=== PATIENT | female | born 1935 | race Hispanic/Latino ===

== ENCOUNTER 2020-11-23 06:47 | Inpatient (IN) | payer MEDICARE ==
[~2020-11-23] VITALS: Ht 160 cm; Wt 67.9 kg
[2020-11-23 08:17] LABS: BASO % 0.2 % (0.0-1.0); EOS # 0.2 10^3/uL (0.0-0.5); EOS % 2.1 % (0.0-3.0); HEMATOCRIT 36.3 % (36.0-47.0); LYMPH # 4.3 10^3/uL (1.5-5.0); MEAN CORPUSCULAR HEMOGLOBIN 24.7 pg (27.0-33.0); MEAN CORPUSCULAR HGB CONC 30.3 g/dl (32.0-36.5); MEAN CORPUSCULAR VOLUME 81.4 fl (80.0-96.0); MONO # 0.6 10^3/uL (0.0-0.8); MONO % 6.1 % (2.0-8.0); NEUTROPHILS # 3.8 10^3/uL (1.5-8.5); PLATELET COUNT, AUTOMATED 145 10^3/uL (150-450); RED BLOOD COUNT 4.46 10^6/uL (4.00-5.40)
[2020-11-23 08:27] LABS: INR 1.16; PROTHROMBIN TIME 15.2 SECONDS (12.7-14.5)
[2020-11-23 08:28] LABS: PARTIAL THROMBOPLASTIN TIME 28.1 SECONDS (25.9-37.0)
[2020-11-23] MEDS ORDERED: ISOVUE-370 76% 100ML VIAL As Ordered ONE (08:47)
[2020-11-23 08:50] LABS: ALBUMIN 3.3 GM/DL (3.2-5.2); ALT/SGPT 39 U/L (12-78); AMYLASE 58 U/L (25-115); BILIRUBIN,DIRECT 0.1 MG/DL (0.0-0.2); BILIRUBIN,TOTAL 0.3 MG/DL (0.2-1.0); CK-MB VALUE MASS 1.1 NG/ML (<3.6); CPK CREATINE PHOSPHOKINASE 94 U/L (26-192); ETHYL ALCOHOL (ETHANOL) < 0.003 % (0.000-0.010); LIPASE 108 U/L (73-393); MB/CK RELATIVE INDEX 1.17 (< OR =4); TOTAL PROTEIN 5.9 GM/DL (6.4-8.2); TROPONIN I < 0.02 NG/ML (< 0.10)
[2020-11-23 09:02] LABS: APPEARANCE, URINE CLEAR (CLEAR); BILIRUBIN, URINE AUTO NEGATIVE (NEGATIVE); BLOOD, URINE BLOOD NEGATIVE (NEGATIVE); COLOR, URINE YELLOW (YELLOW); GLUCOSE, URINE (UA) AUTO NEGATIVE (NEGATIVE); KETONE, URINE AUTO NEGATIVE (NEGATIVE); LEUKOCYTE ESTERASE, URINE AUTO TRACE (NEGATIVE); NITRITE, URINE AUTO NEGATIVE (NEGATIVE); PROTEIN, URINE AUTO NEGATIVE (NEGATIVE); UROBILINOGEN, URINE AUTO 0.2 mg/dL (0.0-2.0)
[2020-11-23 09:04] LABS: BACTERIA, URINE AUTO NEGATIVE (NEGATIVE); MUCUS, URINE SMALL (NEGATIVE); RBC, URINE AUTO 1 /HPF (0-3); SQUAMOUS EPITHELIAL CELL UR AU 0 /HPF (0-6); WBC, URINE AUTO 2 /HPF (0-3)
--- NOTE | 2020-11-23 09:12 | REP ---
INDICATION: Trauma. COMPARISON: None. TECHNIQUE: Four views of the right wrist were obtained. FINDINGS: There is an acute comminuted impacted fracture of the distal radius and the distal ulna. There is also an acute avulsion fracture of the ulnar styloid. There is no significant angulation deformity. There is an apparent old healed fracture. IMPRESSION: 1. Comminuted impacted fracture of the distal radius. 2. Oblique fracture of the distal ulna. 3. Avulsion fracture of the ulnar styloid. 4. Apparent previous healed fracture of the distal radius. Incidental Findings: Right distal radius and ulnar fractures. The critical information above was relayed directly by me by telephone to Josr Castillo on 11/23/2020 at 9:07 am with readback verification. <Electronically signed by Dg Garner > 11/23/20 0933
--- NOTE | 2020-11-23 09:22 | REP ---
INDICATION: Trauma. COMPARISON: None. TECHNIQUE: Contiguous 5 mm thick axial projection images were obtained of the head. 2D coronal reconstructions were performed. FINDINGS: There is moderate diffuse cerebral atrophy with concomitant ventriculomegaly. There is calcific vascular disease of the intracranial portion of both internal carotid arteries and the left vertebral artery. There is a left supraorbital scalp hematoma. There is a 3.0 cm in diameter cystic scalp lesion just to the right of midline just anterior to the coronal suture. IMPRESSION: 1. Moderate cerebral atrophy. 2. No evidence of acute intracranial pathology. 3. Left supraorbital scalp hematoma. 4. Right frontal cystic scalp mass, may be a sebaceous cyst. 5. Calcific vascular disease of the intracranial portion of both internal carotid arteries and the left vertebral artery. <Electronically signed by Dg Garner > 11/23/20 0902
[2020-11-23 09:28] LABS: AMPHETAMINES LEVEL URINE NEGATIVE (NEGATIVE); BARBITURATES URINE NEGATIVE (NEGATIVE); BENZODIAZEPINES URINE NEGATIVE (NEGATIVE); CANNABINOIDS URINE NEGATIVE (NEGATIVE); COCAINE METABOLITE URINE NEGATIVE (NEGATIVE); METHADONE URINE NEGATIVE (NEGATIVE); OPIATES URINE NEGATIVE (NEGATIVE); PHENCYCLIDINE URINE NEGATIVE (NEGATIVE)
--- NOTE | 2020-11-23 09:32 | REP ---
INDICATION: Trauma. COMPARISON: None. TECHNIQUE: Contiguous 2 mm thick axial projection images were obtained from the skull base to the thoracic inlet. 2D sagittal and coronal reconstructions were performed. FINDINGS: There is no evidence of acute fracture or facet subluxation or dislocation. There is no evidence of prevertebral soft tissue swelling. There is no abnormal mass effect on the visualized brainstem or cervical spinal cord. 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 There is loss of the normal cervical lordosis and torticollis to the right. There is degenerative disc disease, C3-4, C4-5, C5-6 and C6-7 with narrowing of the disc spaces and marginal osteophytes. There is a large partially calcified disc protrusion at C6-7. There is no central canal stenosis. There is bilateral facet arthropathy, C2-3 through C6-7. There is 2 mm of degenerative anterolisthesis of C3 on C4, C4 on C5 and C5 on C6. There is a mucous retention cyst or polyp in the left maxillary sinus. There is calcific vascular disease of both carotid bifurcations. The visualized paravertebral soft tissues have an otherwise unremarkable unenhanced appearance. IMPRESSION: 1. No evidence of acute bony injury to the cervical spine. There is no perivertebral soft tissue swelling. 2. There is multilevel degenerative disc disease of the cervical spine with cervical spasm. 3. There is multilevel spondylosis with degenerative grade 1 anterolisthesis, C3 on C4 through C5 on C6. 4. Other findings as noted. <Electronically signed by Dg Garner > 11/23/20 0955
--- NOTE | 2020-11-23 09:38 | REP ---
INDICATION: Trauma -left lateral rib pain. COMPARISON: None. TECHNIQUE: Imaging protocol: Computed tomography of the chest with IV contrast. Contiguous 3 mm thick axial projection images were obtained through the chest. 2D sagittal and coronal reconstructions were performed. Radiation optimization: All CT scans at this facility use at least one of these dose optimization techniques: automated exposure control; mA and/or kV adjustment per patient size (includes targeted exams where dose is matched to clinical indication); or iterative reconstruction. CONTRAST: 100 cc Isovue 370 IV. FINDINGS: Lower neck: The thyroid gland is normal. There is no supraclavicular lymphadenopathy. Mediastinum: No abnormal masses or lymphadenopathy. Heart/thoracic aorta: The heart size is normal. There is no pericardial effusion. There is an endoluminal aortic valve prosthesis. There is calcific vascular disease of the thoracic aorta and coronary arteries. There is no evidence of thoracic aortic aneurysm or thoracic aortic dissection. Upper abdomen: Please see CT abdomen and pelvis report, same day. Thoracic esophagus: Normal. Chest wall and axilla: The breasts and soft tissues of the chest wall appear unremarkable. There is no evidence of acute bony injury to the chest. Lung parenchyma: There is mild basilar predominant subpleural reticulation. There are no pulmonary nodules or masses. There is no evidence of pneumothorax, pulmonary contusion or pleural effusion. IMPRESSION: 1. No evidence of acute injury to the chest. 2. Mild chronic interstitial lung disease. 3. 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 There is an aortic valve prosthesis. <Electronically signed by Dg Garner > 11/23/20 0902
--- NOTE | 2020-11-23 09:44 | REP ---
INDICATION: Trauma. COMPARISON: None. TECHNIQUE: AP and lateral views of the right forearm were performed. FINDINGS: There is a comminuted impacted fracture of the distal radius. There is an oblique fracture of the distal ulna. There is an avulsion fracture of the ulnar styloid. The radial head appears subluxed at the radiocapitellar joint. There is no fracture line evident. There is no elbow joint effusion evident. There is a small olecranon spur. IMPRESSION: Apparent subluxation of the radial head at the radiocapitellar joint. No fracture or joint effusion is evident. <Electronically signed by Dg Garner > 11/23/20 2471
--- NOTE | 2020-11-23 09:57 | REP ---
INDICATION: Trauma. COMPARISON: None. TECHNIQUE: Three views of the left shoulder were obtained. FINDINGS: There is an oblique fracture of the clavicle distal to the coracoclavicular articulation a. there is mild inferior displacement of the shoulder girdle. There is moderate arthritis of the acromioclavicular joint. The glenohumeral joint appears unremarkable. The periarticular soft tissues, including the visualized portion of the left lung, are unremarkable. IMPRESSION: 1. Acute oblique fracture of the distal clavicle. 2. Other findings as noted. <Electronically signed by Dg Garner > 11/23/20 0992
--- NOTE | 2020-11-23 09:59 | REP ---
INDICATION: Trauma. COMPARISON: None. TECHNIQUE: Four views of the left ankle were performed. FINDINGS: There is a linear fracture of the calcaneus which extends from the calcaneal tuberosity to the subtalar joint. The mortise joint is intact. There is soft tissue swelling about the ankle. IMPRESSION: 1. Calcaneal fracture, as described. 2. Other findings as noted. <Electronically signed by Dg Garner > 11/23/20 8205
--- NOTE | 2020-11-23 10:01 | REP ---
INDICATION: Trauma. COMPARISON: None. TECHNIQUE: Four views of the left foot were obtained. FINDINGS: There is a linear fracture of the calcaneus which extends from the calcaneal tuberosity to the subtalar joint. There is soft tissue swelling about the ankle. No other acute injuries are identified. IMPRESSION: Fracture of the left calcaneus with associated soft tissue swelling. <Electronically signed by Dg Garner > 11/23/20 0957
--- NOTE | 2020-11-23 10:02 | REP ---
INDICATION: Trauma. COMPARISON: None. TECHNIQUE: Upright AP portable chest image was obtained. FINDINGS: There is chronic interstitial lung disease. There is cardiomegaly and aortic ectasia consistent with benign essential hypertension. There is an endoluminal aortic valve prosthesis. There is calcific vascular disease of the thoracic aorta. There is no evidence of acute bony injury to the chest. There is no evidence of pneumothorax, pulmonary contusion or pleural effusion. IMPRESSION: 1. No evidence of acute injury to the chest. 2. Other findings as noted. <Electronically signed by Dg Garner > 11/23/20 0514
--- NOTE | 2020-11-23 10:03 | REP ---
INDICATION: Trauma. COMPARISON: None. TECHNIQUE: Four views of the right hand were obtained. FINDINGS: There is a comminuted impacted fracture of the distal radius. There is no bleak fracture of the distal ulna. There is an avulsion fracture of the ulnar styloid. There is multifocal arthropathy of the right wrist and hand. IMPRESSION: 1. Fractures of the right distal radius and ulna as described. 2. Multifocal arthropathy of the right hand and wrist, as described <Electronically signed by Dg Garner > 11/23/20 1000
--- NOTE | 2020-11-23 10:05 | REP ---
INDICATION: Trauma. COMPARISON: None. TECHNIQUE: Two AP and 2 lateral views of the left tibia and fibula were obtained. FINDINGS: There is a fracture of the calcaneus. There is associated soft tissue swelling. The tibia and fibula are normal. The knee and ankle joints are normal. IMPRESSION: 1. Fracture of the calcaneus previously described. 2. The tibia and fibula are normal. 3. Other findings as noted. <Electronically signed by Dg Garner > 11/23/20 100
--- NOTE | 2020-11-23 10:08 | REPVR ---
PROCEDURE INFORMATION: Exam: CT Maxillofacial Without Contrast Exam date and time: 11/23/2020 8:48 AM Age: 85 years old Clinical indication: Injury or trauma; Fall. TECHNIQUE: Imaging protocol: Computed tomography images of the face without contrast. Radiation optimization: All CT scans at this facility use at least one of these dose optimization techniques: automated exposure control; mA and/or kV adjustment per patient size (includes targeted exams where dose is matched to clinical indication); or iterative reconstruction. COMPARISON: No relevant prior studies available. FINDINGS: Orbital cavity: Orbits are normal. Globes are unremarkable. Bones/joints: See "Soft tissues" finding. Paranasal sinuses: There is a retention cyst/polyp in the left maxillary sinus. Soft tissues: There is left periorbital soft tissue swelling. There is no underlying fracture. IMPRESSION: There is left periorbital soft tissue swelling. There is no underlying fracture. Electronically signed by: Jemal Robison On 11/23/2020 10:08:11 AM
[2020-11-23 10:16] LABS: RSV AMPLIFICATION NEGATIVE (NEGATIVE)
--- NOTE | 2020-11-23 10:21 | REP ---
INDICATION: Trauma. COMPARISON: None. TECHNIQUE: Imaging protocol: Computed tomography of the abdomen and pelvis with IV contrast. Contiguous 3 mm thick axial projection images were obtained through the abdomen and pelvis. 2D sagittal and coronal reconstructions were performed. Radiation optimization: All CT scans at this facility use at least one of these dose optimization techniques: automated exposure control; mA and/or kV adjustment per patient size (includes targeted exams where dose is matched to clinical indication); or iterative reconstruction. Contrast material: ISOVUE 370; Contrast volume: 100 ml; Contrast route: INTRAVENOUS (IV). FINDINGS: Heart and lung bases: Please see chest CT report, same day. Liver: The liver has a lobulated margin suggesting cirrhosis. Gallbladder: The gallbladder is surgically absent. There is benign post cholecystectomy dilatation of the extrahepatic biliary tree. Spleen: The spleen is enlarged measuring 13.2 cm in pole to pole length. There is a benign splenule. Pancreas: Normal. Adrenal glands: Normal. Kidneys/bladder: There are benign cortical cysts in the right kidney. The left kidney is unremarkable. The urinary bladder has a normal unenhanced appearance. Pelvic structures: The uterus is surgically absent. The ovaries are not identified. There is no free fluid the pelvis. There is no pelvic or inguinal lymphadenopathy. GI tract: There is a large amount of stool in the distal colon and rectal vault. There are scattered colonic diverticuli without evidence of acute inflammation. The appendix is not demonstrated. Abdominal wall and mesentery: There are bilateral inguinal hernias, containing normal fat, measuring 3.7 cm in diameter on the right and 2.6 cm in diameter on the left. There is a 1.3 cm in diameter umbilical hernia containing normal fat. There is no mesenteric or retroperitoneal lymphadenopathy. Abdominal aorta and vascular structures: There is calcific vascular disease of the abdominal aorta. The inferior vena cava and portal venous system are normal. Bony structures: There is mild multilevel degenerative disc disease of the lumbar spine with mild levoscoliosis. The SI joints and hips are normal. IMPRESSION: 1. No evidence of intra-abdominal organ injury or hemoperitoneum. 2. No evidence of acute bony injury to the abdomen or pelvis. 3. The appearance of the liver is consistent with cirrhosis. 4. There is mild splenomegaly. 5. Possible fecal impaction. 6. Colonic diverticulosis without diverticulitis. 7. Other findings as noted. <Electronically signed by Dg Garner > 11/23/20 2524
[2020-11-23] MEDS ORDERED: EZET10TA21 PO (11:20)
[2020-11-23] MEDS ORDERED: CLOP75TA2 PO (11:20)
[2020-11-23] MEDS ORDERED: AMLO1TAB25 PO (11:20)
[2020-11-23] MEDS ORDERED: LOSA100T50 PO (11:20)
[2020-11-23] MEDS ORDERED: METF-838 PO (11:20)
[2020-11-23] MEDS ORDERED: EUTH75TA PO (11:20)
[2020-11-23] MEDS ORDERED: MONT10TA10 PO (11:20)
[2020-11-23] MEDS ORDERED: CITA20TA6 PO (11:20)
[2020-11-23] MEDS ORDERED: VALA500T5 PO (11:20)
[2020-11-23] MEDS ORDERED: MORPHINE 2 MG/ML 1ML VIAL (J2270) IV PRN (12:00)
--- NOTE | 2020-11-23 12:01 | HPEPDOC ---
[facility] Medical History & Physical Date of Admission Nov 23, 2020 Date of Service: Nov 23, 2020 History and Physical CHIEF COMPLAINT: Fall HISTORY OF PRESENT ILLNESS: 85-year-old female with past medical history of follicular lymphoma (on a trial drug), hypertension, diabetes (controlled with diet), hypothyroidism, and TAVR (2019), presented to the emergency room following a fall. Patient is Sami- speaking visiting her daughter from [place]. She requested for her daughter who was at bedside to be the chemical checker. Patient reports she was leaving her bathroom and mistakenly took a wrong turn in her daughter's house resulting in her falling down 15 flights of stairs. She reports it was dark and could not see. She denied any prodromal symptoms. At this junction, she reports 7 out of 10 pain in her right wrist and left leg. She denies headaches, blurry vision, nausea, vomiting, chest pain, palpitations, abdominal pain, nausea with urination and bowel movements. PAST MEDICAL HISTORY: As above PAST SURGICAL HISTORY: 1. Hysterectomy 2. Cholecystectomy 3. Appendectomy 4. Varicose vein (unable to specify what type of surgery) 5. Colonoscopy on 11/18/2020 reports it was benign SOCIAL HISTORY: Lives with her son and grandson in [place], was visiting her daughter here in [facility]. Denies smoking, drinking, use recreational drugs. FAMILY HISTORY: Noncontributory ALLERGIES: Please see below. REVIEW OF SYSTEMS: 10 point review of system was negative except for what is noted in the HPI HOME MEDICATIONS: Please see below. PHYSICAL EXAMINATION: VITAL SIGNS: Please see below General: Lying in bed, no acute distress Head/Neck/Throat: Trachea midline, mucous membranes moist. No overt lesions appreciated on scalp. Eyes: Sclera anicteric, no erythema or discharge appreciated bilaterally Thorax: Normal respiratory effort on room air, lungs clear to auscultation bilaterally, no wheezes/rales/rhonchi Cardiovascular: Normal rate, regular rhythm, normal S1, S2; no S3, S4, rubs/gallops/murmurs Abdomen: Bowel sounds present, soft/nontender/nondistended Genitourinary: No CVA tenderness, no Long in place Musculoskeletal: Right wrist and left leg was wrapped/casted. There is no pain reported with active cervical range of motion. Range of motion is within normal limits at the left shoulder, elbow, and wrist. Right shoulder range of motion is normal, elbow and wrist exam was deferred as it was casted/wrapped. She is able to flex and extend her right leg, elbow, and ankles. Left leg exam was deferred due to pain. There is leg length discrepancy (left leg shorter). Skin: There is lacerations appreciated over the face, nonbleeding, not open, no erythema or discharge. Neurologic: AAOx3, speech fluent and goal-directed, no focal deficits, grossly intact LABORATORY DATA: See below. IMAGING: Please see imaging section MICROBIOLOGY: Please see below. ASSESSMENT/PLAN #Mechanical fall -Left calcaneal fracture, fracture of the right distal radius and ulna, avulsion fracture of the ulnar styloid of the right wrist, acute oblique fracture of the distal clavicle -There was left periorbital soft tissue swelling but otherwise no acute fractures appreciated on maxillofacial CT -Plan to take patient to the OR with surgical and orthopedic team as per ed signout -Symptomatic management with pain medication. #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 This will be resumed following her surgeries. #Hypertension -She is on 3 different antihypertensive medications including losartan, amlodipine, and metoprolol. -Resume antihypertensive medications, following surgery #Hypothyroidism -Continue with Synthroid once diet is initiated #Status post TAVR -Continue aspirin #Incidental finding on CT -Right frontal cystic scalp mask suspicious for sebaceous cyst on head CT. This can be followed up as an outpatient. #DVT prophylaxis -SCDs for now. Will discuss with surgical team for appropriate DVT prophylaxis following surgery Vital Signs Vital Signs Date Time Temp Pulse Resp B/P (MAP) Pulse Ox O2 Delivery O2 Flow Rate FiO2 11/23/20 10:56 147/67 (93) 11/23/20 08:47 85 97 11/23/20 07:09 98.3 16 Room Air Laboratory Data Labs 24H Laboratory Tests 2 11/23/20 07:49: Urine Color YELLOW, Urine Appearance CLEAR, Urine pH 6.0, Urine Specific [place] 1.010, Urine Protein NEGATIVE, Urine Glucose (Auto)(UA) NEGATIVE, Urine Ketones (Auto) NEGATIVE, Urine Blood NEGATIVE, Urine Nitrite NEGATIVE, Urine Bilirubin NEGATIVE, Urine Urobilinogen 0.2, Urine Leukocyte Esterase (Auto) TRACEH, Urine WBC (Auto) 2, Urine RBC (Auto) 1, Urine Hyaline Casts (Auto) 1, Urine Bacteria (Auto) NEGATIVE, Urine Squamous Epithelial Cells 0, Urine Mucus (Auto) SMALL, Urine Sperm (Auto) , Urine Opiates Screen NEGATIVE, Urine Methadone Screen NEGATIVE, Urine Barbiturates Screen NEGATIVE, Urine Phencyclidine Screen NEGATIVE, Urine Amphetamines Screen NEGATIVE, Urine Benzodiazepines Screen NEGATIVE, Urine Cocaine Metabolite Screen NEGATIVE, Urine Cannabinoids Screen NEGATIVE 11/23/20 07:50: Immature Granulocyte % (Auto) 0.6, Neutrophils (%) (Auto) 43.0, Lymphocytes (%) (Auto) 48.0H, Monocytes (%) (Auto) 6.1, Eosinophils (%) (Auto) 2.1, Basophils (%) (Auto) 0.2, Neutrophils # (Auto) 3.8, Lymphocytes # (Auto) 4.3, Monocytes # (Auto) 0.6, Eosinophils # (Auto) 0.2, Basophils # (Auto) 0.0, Nucleated Red Blood Cells % (auto) 0.0, Total Bilirubin 0.3, Direct Bilirubin 0.1, Aspartate Amino Transf (AST/SGOT) 56H, Alanine Aminotransferase (ALT/SGPT) 39, Alkaline Phosphatase 131H, Total Creatine Kinase 94, Creatine Kinase MB 1.1, Creatine Kinase MB Relative Index 1.17, Troponin I < 0.02, Total Protein 5.9L, Albumin 3.3, Albumin/Globulin Ratio 1.3, Amylase Level 58, Lipase 108, Ethyl Alcohol Level < 0.003 11/23/20 07:51: Prothrombin Time 15.2H, Prothromb Time International Ratio 1.16, Activated Partial Thromboplast Time 28.1, Lactic Acid Level 1.8 11/23/20 08:18: POC Glucose (Misc Panel) 188H, POC Sodium (Misc Panel) 142, POC Potassium (Misc Panel) 3.8, POC Chloride (Misc Panel) 108, POC Total CO2 (Misc Panel) 23.0, POC Blood Urea Nitrogen (Misc Panel 18, POC Ionized Calcium (Misc Panel) 5.2, POC Creatinine (Misc Panel) 0.6, POC Hematocrit (Misc Panel) 34.0L 11/23/20 09:16: Coronavirus (COVID-19)(PCR) NEGATIVE, Influenza Type A (RT-PCR) NEGATIVE, Influenza Type B (RT-PCR) NEGATIVE, Respiratory Syncytial Virus (PCR) NEGATIVE CBC/BMP Laboratory Tests 11/23/20 07:50 Home Medications Scheduled Amlodipine Besylate (Amlodipine Besylate) 10 Mg Tablet, 10 MG PO DAILY Citalopram Hydrobromide (Citalopram HBr) 20 Mg Tablet, 20 MG PO DAILY Clopidogrel Bisulfate (Clopidogrel) 75 Mg Tablet, 75 MG PO DAILY Ezetimibe (Ezetimibe) 10 Mg Tablet, 10 MG PO DAILY Levothyroxine Sodium (Euthyrox) 75 Mcg Tablet, 75 MCG PO DAILY Losartan Potassium (Losartan Potassium) 100 Mg Tablet, 100 MG PO DAILY Metformin HCl (Metformin HCl ER) 500 Mg Tab.er.24h, 1,000 MG PO BID Montelukast Sodium (Montelukast Sodium) 10 Mg Tablet, 10 MG PO DAILY Valacyclovir HCl (Valacyclovir) 500 Mg Tablet, 500 MG PO DAILY Allergies Coded Allergies: No Known Allergies (Unverified , 11/23/20) A-FIB/CHADSVASC A-FIB History Current/History of A-Fib/PAF?: No SHEREEN LYNNE M.D. Nov 23, 2020 11:42
[2020-11-23] MEDS ORDERED: hydrALAZINE 20MG/ML 1ML VIAL (J0360 PER 20MG) IV PRN (12:05)
[2020-11-23] MEDS ORDERED: ASPI81TA26 PO (12:29)
[2020-11-23] MEDS ORDERED: SULF400T14 PO (12:29)
[2020-11-23] MEDS ORDERED: HOME MED LIST COMPLETE! XX SCH (12:35)
--- NOTE | 2020-11-23 13:19 | CR.PDOC ---
General Date of Consultation: Nov 23, 2020 Consultation CHIEF COMPLAINT: Fall History from Daughter in law translating and from H&P HISTORY OF PRESENT ILLNESS: 85-year-old female with past medical history of follicular lymphoma (on a trial drug), hypertension, diabetes (controlled with diet), hypothyroidism, and TAVR (2019), presented to the emergency room following a fall. Patient is Icelandic- speaking visiting from [place]. She requested for her daughter who was at bedside to be the aerial photograph interpreter. Patient reports she was leaving her bathroom and mistakenly took a wrong turn in her daughter's house resulting in her falling down 15 steps of stairs. She reports it was dark and could not see. Mechanical fall only. PAST MEDICAL HISTORY: As above PAST SURGICAL HISTORY: 1. Hysterectomy 2. Cholecystectomy 3. Appendectomy 4. Varicose vein (unable to specify what type of surgery) 5. Colonoscopy on 11/18/2020 reports it was benign SOCIAL HISTORY: Lives with her son and grandson in [place], was visiting her daughter here in [facility]. Denies smoking, drinking, use recreational drugs. FAMILY HISTORY: Noncontributory ALLERGIES: Please see below. REVIEW OF SYSTEMS: negative aside from HPI HOME MEDICATIONS: Please see below. PHYSICAL EXAMINATION: VITAL SIGNS: Please see below General: Lying in bed, no acute distress Musculoskeletal: Right wrist and left leg splinted. Right wrist left in splint for now. Left ankle splint taken down. Swelling noted, mild tenderness to calcaneal region. no evidence of skin tenting, no bruising. Bruising, abrasion of left shoulder/clavicle mildly tender. Skin: Abrasions, bruising to face. No evidence of open fracture to the right wrist Neurologic: AAOx3 No evidence of compartment syndrome to the right forearm Grossly neurovascularly intact to bilateral lower extremities to light touch with sensation. Palpable posterior tibial pulses bilaterally. Moving toes and ankles LABORATORY DATA: See below. IMAGING: X-ray imaging X-ray imaging of the left calcaneus demonstrated a tongue type fracture without displacement. X-ray imaging of the right distal radius and ulna demonstrated fractures involving both the distal radius and the ulna with an ulnar styloid avulsion fracture with shortening and some comminution. X-ray imaging of the left distal clavicle demonstrated an undisplaced distal clavicle fracture ASSESSMENT/PLAN Mechanical fall Left calcaneal fracture -patient placed in a back slab Ortho-Glass splint with additional padding utilizing web roll. Patient will be NWB to Left foot, temporary splint - will order walking boot with slight heel lift. The patient will either have this ordered to olive picker as an outpatient or if she ends up being admitted for failure to cope at home we will see if we can arrange this in the hospital. Fracture of the right distal radius and ulna, avulsion fracture of the ulnar styloid of the right wrist - CR and splinting in ED under CS performed. The patient underwent conscious sedation and signed consent for closed reduction and casting. The daughter who is accompanying the patient help provide translation and cosigned the verbal consent from the patient. After induction of conscious sedation, the patient underwent manipulation and distraction of the fracture site. Web roll was applied followed by ci rcumferential plaster material. This was molded appropriately with traction and position of the fracture was checked with fluoroscopy which appeared to be adequate. Once the plaster cast had dried the cast was bivalved and wrapped with a tensor. Some adjustments were made to decrease some irritation around the first webspace to decrease irritation from plaster material. The patient tolerated the procedure well and was found to be grossly neurovascularly intact post casting. Acute oblique fracture of the distal clavicle - non op treatment. limited wb to left shoulder <5-10 lbs Patient will be seen for follow-up next week either Tuesday or Tuesday for repeat x-ray imaging of the fracture sites and to ensure that she has received her walking boot. She will remain nonweightbearing to the right upper extremity and left lower extremity with limited weightbearing to the left upper extremity. Vital Signs/I&O Vital Signs Date Time Temp Pulse Resp B/P (MAP) Pulse Ox O2 Delivery O2 Flow Rate FiO2 11/23/20 10:56 147/67 (93) 11/23/20 08:47 85 97 11/23/20 07:09 98.3 16 Room Air Laboratory Data Labs 24H Laboratory Tests 2 11/23/20 07:49: Urine Color YELLOW, Urine Appearance CLEAR, Urine pH 6.0, Urine Specific [place] 1.010, Urine Protein NEGATIVE, Urine Glucose (Auto)(UA) NEGATIVE, Urine Ketones (Auto) NEGATIVE, Urine Blood NEGATIVE, Urine Nitrite NEGATIVE, Urine Bilirubin NEGATIVE, Urine Urobilinogen 0.2, Urine Leukocyte Esterase (Auto) TRACEH, Urine WBC (Auto) 2, Urine RBC (Auto) 1, Urine Hyaline Casts (Auto) 1, Urine Bacteria (Auto) NEGATIVE, Urine Squamous Epithelial Cells 0, Urine Mucus (Auto) SMALL, Urine Sperm (Auto) , Urine Opiates Screen NEGATIVE, Urine Methadone Screen NEGATIVE, Urine Barbiturates Screen NEGATIVE, Urine Phencyclidine Screen NEGATIVE, Urine Amphetamines Screen NEGATIVE, Urine Benzodiazepines Screen NEGATIVE, Urine Cocaine Metabolite Screen NEGATIVE, Urine Cannabinoids Screen NEGATIVE 11/23/20 07:50: Immature Granulocyte % (Auto) 0.6, Neutrophils (%) (Auto) 43.0, Lymphocytes (%) (Auto) 48.0H, Monocytes (%) (Auto) 6.1, Eosinophils (%) (Auto) 2.1, Basophils (%) (Auto) 0.2, Neutrophils # (Auto) 3.8, Lymphocytes # (Auto) 4.3, Monocytes # (Auto) 0.6, Eosinophils # (Auto) 0.2, Basophils # (Auto) 0.0, Nucleated Red Blood Cells % (auto) 0.0, Total Bilirubin 0.3, Direct Bilirubin 0.1, Aspartate Amino Transf (AST/SGOT) 56H, Alanine Aminotransferase (ALT/SGPT) 39, Alkaline Phosphatase 131H, Total Creatine Kinase 94, Creatine Kinase MB 1.1, Creatine Kinase MB Relative Index 1.17, Troponin I < 0.02, Total Protein 5.9L, Albumin 3.3, Albumin/Globulin Ratio 1.3, Amylase Level 58, Lipase 108, Ethyl Alcohol Level < 0.003 11/23/20 07:51: Prothrombin Time 15.2H, Prothromb Time International Ratio 1.16, Activated Partial Thromboplast Time 28.1, Lactic Acid Level 1.8 11/23/20 08:18: POC Glucose (Misc Panel) 188H, POC Sodium (Misc Panel) 142, POC Potassium (Misc Panel) 3.8, POC Chloride (Misc Panel) 108, POC Total CO2 (Misc Panel) 23.0, POC Blood Urea Nitrogen (Misc Panel 18, POC Ionized Calcium (Misc Panel) 5.2, POC Creatinine (Misc Panel) 0.6, POC Hematocrit (Misc Panel) 34.0L 11/23/20 09:16: Coronavirus (COVID-19)(PCR) NEGATIVE, Influenza Type A (RT-PCR) NEGATIVE, Influenza Type B (RT-PCR) NEGATIVE, Respiratory Syncytial Virus (PCR) NEGATIVE CBC/BMP Laboratory Tests 11/23/20 07:50 Allergies Coded Allergies: No Known Allergies (Unverified , 11/23/20) Home Medications Scheduled Amlodipine Besylate (Amlodipine Besylate) 10 Mg Tablet, 10 MG PO DAILY, (Reported) Aspirin (Aspirin EC) 81 Mg Tablet.dr, 81 MG PO DAILY, (Reported) Citalopram Hydrobromide (Citalopram HBr) 20 Mg Tablet, 20 MG PO DAILY, (Reported) Levothyroxine Sodium (Euthyrox) 75 Mcg Tablet, 75 MCG PO DAILY, (Reported) Losartan Potassium (Losartan Potassium) 100 Mg Tablet, 100 MG PO DAILY, (Reported) Metformin HCl (Metformin HCl ER) 500 Mg Tab.er.24h, 1,000 MG PO BID, (Reported) Montelukast Sodium (Montelukast Sodium) 10 Mg Tablet, 10 MG PO DAILY, (Reported) Sulfamethoxazole/Trimethoprim (Sulfamethoxazole-Tmp Ss Tablet) 1 Each Tablet, 1 TAB PO DAILY, (Reported) Valacyclovir HCl (Valacyclovir) 500 Mg Tablet, 500 MG PO DAILY, (Reported) [[id number]] , 20 MG PO DAILY, (Reported) THIS IS PATIENT'S CHEMO TREATMENT THAT WAS BROUGHT WITH HER FROM [place]. VIOLETTA MARKS MD Nov 23, 2020 13:19
[2020-11-23] MEDS: NS 0.45% 1,000 ML IV SCH ×2 (13:27→22:47)
[2020-11-23] MEDS ORDERED: propofoL 200 MG/20 ML VIAL As Ordered ONE (13:38)
[2020-11-23] MEDS ORDERED: propofoL 200 MG/20 ML VIAL IV PRN (13:41)
[2020-11-23] MEDS: propofoL 200 MG/20 ML VIAL IV.PROC PRN ×4 (13:41→13:51)
[2020-11-23] MEDS ORDERED: DEXTROSE 50% 50 ML SYRINGE IV PRN (14:25)
[2020-11-23] MEDS ORDERED: GLUCOSE 4GM CHEW TABLET PO PRN (14:25)
[2020-11-23] MEDS ORDERED: GLUCAGON INJ 1MG VIAL SC PRN (14:25)
[2020-11-23] MEDS ORDERED: [UNRECOGNIZED DRUG - OTHER] PO (14:43)
[2020-11-23 15:26] VITALS: BP 181/82
[2020-11-23] MEDS: MONTELUKAST 10 MG TAB PO SCH (15:49)
[2020-11-23] MEDS: LOSARTAN 50MG TABLET PO SCH (15:49)
[2020-11-23] MEDS: ASPIRIN 81MG ENTERIC TABLET PO SCH (15:49)
[2020-11-23] MEDS: CitaloPRAM (CeleXA) 20 MG TAB PO SCH (15:50)
[2020-11-23] MEDS: MORPHINE 4 MG/ML 1ML VIAL/SYRINGE (J2270) IV PRN ×2 (15:57→22:46)
[2020-11-23 17:30] VITALS: BP 150/67
--- NOTE | 2020-11-23 17:30 | ECGEPIP ---
[facility] - ED Test Date: 2020-11-23 Pat Name: JOSE JACOBSEN Department: Room: 01[facility] Gender: Female Costume Designer: KAM : [id number] Requested By: Josr Castillo Order Number: [id number] Reading MD: Jorge L Pena Measurements Intervals [place] Rate: 71 P: 62 W[place]: 170 QRS: -18 QRSD: 88 T: 46 QT: 422 QTc: 458 Interpretive Statements Normal sinus rhythm Comparison tracing not on file Electronically Signed on 11-23-2020 17:30:16 EDT by Jorge L Pena
[2020-11-23] MEDS: HumaLOG INSULIN (NovoLOG) PER UNIT SC SCH ×2 (17:58→21:00)
[2020-11-23] MEDS: [UNRECOGNIZED DRUG - OTHER] PO SCH (17:58)
--- NOTE | 2020-11-23 19:01 | REP ---
INDICATION: sp reduction dr robb. COMPARISON: None. TECHNIQUE: AP and lateral images of the right wrist were obtained. FINDINGS: Two views of the right wrist in plaster demonstrate adequate alignment of the fracture fragments. IMPRESSION: Jem is findings. <Electronically signed by Dg Garner > 11/23/20 [id number]
[2020-11-23 22:00] VITALS: BP 148/65
[2020-11-23] MEDS: KETOROLAC 30 MG/ML 1ML VIAL IV PRN (22:47)
[2020-11-23] MEDS: ACETAMINOPHEN TAB 650MG DOSE (2X325MG) PO PRN (23:26)
[2020-11-24 06:00] VITALS: BP 143/58
[2020-11-24] MEDS: NS 0.45% 1,000 ML IV SCH ×4 (06:02→22:52)
[2020-11-24] MEDS: LEVOTHYROXINE 75MCG TABLET (0.075MG) PO SCH (06:02)
[2020-11-24 06:17] LABS: HEMATOCRIT 29.2 % (36.0-47.0); MEAN CORPUSCULAR HEMOGLOBIN 24.9 pg (27.0-33.0); MEAN CORPUSCULAR HGB CONC 30.5 g/dl (32.0-36.5); MEAN CORPUSCULAR VOLUME 81.6 fl (80.0-96.0); PLATELET COUNT, AUTOMATED 115 10^3/uL (150-450); RED BLOOD COUNT 3.58 10^6/uL (4.00-5.40); WHITE BLOOD COUNT 9.5 10^3/uL (4.0-10.0)
[2020-11-24 06:21] LABS: HEMOGLOBIN 8.9 g/dl (12.0-15.5)
[2020-11-24 06:39] LABS: BLOOD UREA NITROGEN 10 MG/DL (7-18); CALCIUM LEVEL 8.6 MG/DL (8.8-10.2); CARBON DIOXIDE LEVEL 24 MEQ/L (21-32); CHLORIDE LEVEL 111 MEQ/L (98-107); CREATININE FOR GFR 0.48 MG/DL (0.55-1.30); FREE T4 0.97 NG/DL (0.76-1.46); GLOMERULAR FILTRATION RATE > 60.0 (>32); GLUCOSE, FASTING 106 MG/DL (70-100); MAGNESIUM LEVEL 1.9 MG/DL (1.8-2.4); PHOSPHORUS LEVEL 2.9 MG/DL (2.5-4.9); POTASSIUM SERUM 3.5 MEQ/L (3.5-5.1); SODIUM LEVEL 143 MEQ/L (136-145)
[2020-11-24 07:04] LABS: HEMOGLOBIN A1c 6.4 %
[2020-11-24] MEDS: ASPIRIN 81MG ENTERIC TABLET PO SCH (08:45)
[2020-11-24] MEDS: MONTELUKAST 10 MG TAB PO SCH (08:47)
[2020-11-24] MEDS: valACYclovir HCL 500 MG TAB PO SCH (08:47)
[2020-11-24] MEDS: HumaLOG INSULIN (NovoLOG) PER UNIT SC SCH ×4 (08:48→21:00)
[2020-11-24] MEDS: CitaloPRAM (CeleXA) 20 MG TAB PO SCH (08:48)
[2020-11-24] MEDS: LOSARTAN 50MG TABLET PO SCH (08:48)
--- NOTE | 2020-11-24 10:35 | CR ---
CONSULTATION DATE: 11/23/2020 REASON FOR CONSULTATION: Fall from her bed injuring arm and her left heel. BRIEF HISTORY OF PRESENT ILLNESS: Patient is an 85-year-old female who has a history of follicular lymphoma, hypertension, diabetes, who was visiting her daughter. She is originally from [place] and she fell down a flight of stairs approximately 15 stairs and was found with pain in her right wrist and left foot. She has had a previous wrist fracture in the past on the right hand side. PAST MEDICAL HISTORY: Significant for a history of hypertension, diabetes mellitus, hypothyroidism, TAVR, history of a hysterectomy and a cholecystectomy, appendectomy, varicose vein surgery. PHYSICAL EXAMINATION: Physical exam reveals an 85-year-old female who looks her stated age. She does have some abrasions to her forehead on the right hand side, a small contusion, some on her left face as well but these are all superficial. No other significant extremity abnormalities at this time other than the pain in the left leg. Her lungs are clear to auscultation. Heart is regular. Abdomen is soft, nontender, nondistended. Pelvis is intact. Neuromuscular is intact throughout the extremities. She has a splint on the right arm and a cast on the left leg as well. Imaging reveals no neurologic abnormalities and a calcaneus fracture on the left, right distal radius and ulnar fracture as well as left clavicle fracture. No other general surgical issues are appreciated at this time. No evidence of intraabdominal process. No pulmonary contusion. IMPRESSION/PLAN: Patient has isolated orthopedic issues with some minimal contusion/abrasions on her forehead and scalp. At this point, Trauma Service will be available for different recommendations should you so desire.
--- NOTE | 2020-11-24 12:24 | IPNPDOC ---
Subjective Date Seen The patient was seen on 11/24/20. Subjective Chief Complaint/HPI Patient was seen and examined at bedside this morning. She is Wallisian speaking and monitoring daughter for interpretation who was present also at bedside. She reports her pain is well controlled and was glad that she did not have to undergo any surgical interventions for her fractures. She denied palpitations, chest pain, abdominal pain, nausea, vomiting, problems with urination and bowel movements. Overnight no acute events were reported. Objective Physical Examination Other physical findings General: Lying in bed, no acute distress Head/Neck/Throat: Trachea midline, mucous membranes moist. No overt lesions appreciated on scalp. Eyes: Sclera anicteric, no erythema or discharge appreciated bilaterally Thorax: Normal respiratory effort on room air, lungs clear to auscultation bilaterally, no wheezes/rales/rhonchi Cardiovascular: Normal rate, regular rhythm, normal S1, S2; no S3, S4, rubs/gallops/murmurs Abdomen: Bowel sounds present, soft/nontender/nondistended Genitourinary: No CVA tenderness, no Long in place Musculoskeletal: Right wrist is wrapped in a cast, as well as left lower extremity. Neurologic: AAOx3, speech fluent and goal-directed, no focal deficits, grossly intact Assessment /Plan Assessment #Mechanical fall -Evaluated by orthopedic team: -Left calcaneal fracture: Patient was placed in a splint she is to be nonweightbearing to the left foot. A walking boot with slight heel lift was ordered by orthopedics team. -Fracture of the distal radius and ulna, avulsion fraction of the ulnar styloid of the right wrist -underwent closed reduction and splinting -Acute oblique fracture of the left distal clavicle -no operative intervention required at this time, limited weightbearing to left shoulder less than 5 to 10 pounds -Patient is to follow-up with orthopedics team next week Tuesday or Tuesday for repeat imaging assessment of fractures: "She will remain nonweightbearing to the right upper extremity and left lower extremity with limited weightbearing to the left upper extremity." As per Ortho recommendation -There was left periorbital soft tissue swelling but otherwise no acute frac tures appreciated on maxillofacial CT #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 This will be resumed following her surgeries. #Hypertension -Continue ambulatory losartan, amlodipine, and metoprolol. #Hypothyroidism -Continue with Synthroid #Status post TAVR -Continue aspirin #Incidental finding on CT -Right frontal cystic scalp mask suspicious for sebaceous cyst on head CT. This can be followed up as an outpatient. #DVT prophylaxis -She will have been prescribed Xarelto 10 mg daily. The risks as well as benefits were discussed in detail with the patient as well as the patient's daughter. They are explained with the experimental drug taken for follicular lymphoma may cause interactions including possible increased bleeding risks. They are willing to accept these risks and follow-up with the physician who is prescribing the experimental drug for follicular lymphoma. Plan/VTE VTE Prophylaxis Ordered?: Yes VS, I&O, 24H, Fishbone Vital Signs/I&O Vital Signs Date Time Temp Pulse Resp B/P (MAP) Pulse Ox O2 Delivery O2 Flow Rate FiO2 11/24/20 08:48 140/71 11/24/20 06:00 97.6 65 16 97 Room Air I&O- Last 24 Hours up to 6 AM 11/24/20 06:00 Intake Total 1070 ml Output Total 750 ml Balance 320 ml Laboratory Data 24H LABS Laboratory Tests 2 11/23/20 16:15: Bedside Glucose (Misc Panel) 163H 11/23/20 22:01: Bedside Glucose (Misc Panel) 274H 11/23/20 22:21: Bedside Glucose (Misc Panel) 242H 11/24/20 05:50: Nucleated Red Blood Cells % (auto) 0.0, Anion Gap 8, Glomerular Filtration Rate > 60.0, Estimated Mean Plasma Glucose 137H, Hemoglobin A1c 6.4, Calcium Level 8 .6L, Phosphorus Level 2.9, Magnesium Level 1.9, Thyroid Stimulating Hormone (TSH) 2.050, Free Thyroxine 0.97 11/24/20 11:48: Bedside Glucose (Misc Panel) 174H CBC/BMP Laboratory Tests 11/24/20 05:50 SHEREEN LYNNE M.D. Nov 24, 2020 11:56
[2020-11-24] MEDS: [UNRECOGNIZED DRUG - OTHER] PO SCH (12:35)
[2020-11-24 14:00] VITALS: BP 140/65
[2020-11-24] MEDS: KETOROLAC 30 MG/ML 1ML VIAL IV PRN (18:04)
[2020-11-24] MEDS: RIVAROXABAN 10 MG TAB (XARELTO) PO SCH (18:04)
[2020-11-24 22:00] VITALS: BP 134/64
[2020-11-24] MEDS: ACETAMINOPHEN TAB 650MG DOSE (2X325MG) PO PRN (22:53)
[2020-11-25 06:00] VITALS: BP 139/64
[2020-11-25 06:13] LABS: HEMATOCRIT 30.7 % (36.0-47.0); HEMOGLOBIN 9.3 g/dl (12.0-15.5); MEAN CORPUSCULAR HEMOGLOBIN 24.7 pg (27.0-33.0); MEAN CORPUSCULAR HGB CONC 30.3 g/dl (32.0-36.5); MEAN CORPUSCULAR VOLUME 81.6 fl (80.0-96.0); RED BLOOD COUNT 3.76 10^6/uL (4.00-5.40); WHITE BLOOD COUNT 7.6 10^3/uL (4.0-10.0)
[2020-11-25] MEDS: LEVOTHYROXINE 75MCG TABLET (0.075MG) PO SCH (06:22)
[2020-11-25] MEDS: NS 0.45% 1,000 ML IV SCH (06:24)
[2020-11-25 06:36] LABS: ALBUMIN 2.9 GM/DL (3.2-5.2); ALT/SGPT 42 U/L (12-78); BILIRUBIN,TOTAL 0.4 MG/DL (0.2-1.0); BLOOD UREA NITROGEN 9 MG/DL (7-18); CALCIUM LEVEL 8.4 MG/DL (8.8-10.2); CARBON DIOXIDE LEVEL 26 MEQ/L (21-32); CHLORIDE LEVEL 112 MEQ/L (98-107); CREATININE FOR GFR 0.53 MG/DL (0.55-1.30); GLOMERULAR FILTRATION RATE > 60.0 (>32); GLUCOSE, FASTING 127 MG/DL (70-100); MAGNESIUM LEVEL 1.9 MG/DL (1.8-2.4); PHOSPHORUS LEVEL 2.7 MG/DL (2.5-4.9); POTASSIUM SERUM 3.9 MEQ/L (3.5-5.1); SODIUM LEVEL 143 MEQ/L (136-145); TOTAL PROTEIN 5.1 GM/DL (6.4-8.2)
[2020-11-25 07:03] LABS: PLATELET COUNT, AUTOMATED 94 10^3/uL (150-450)
[2020-11-25] MEDS: HumaLOG INSULIN (NovoLOG) PER UNIT SC SCH ×4 (08:41→21:00)
[2020-11-25] MEDS: ASPIRIN 81MG ENTERIC TABLET PO SCH (08:42)
[2020-11-25] MEDS: MONTELUKAST 10 MG TAB PO SCH (08:44)
[2020-11-25] MEDS: LOSARTAN 50MG TABLET PO SCH (08:44)
[2020-11-25] MEDS: CitaloPRAM (CeleXA) 20 MG TAB PO SCH (08:45)
[2020-11-25] MEDS: valACYclovir HCL 500 MG TAB PO SCH (08:45)
[2020-11-25] MEDS: [UNRECOGNIZED DRUG - OTHER] PO SCH (13:19)
[2020-11-25 14:00] VITALS: BP 158/76
[2020-11-25] MEDS: RIVAROXABAN 10 MG TAB (XARELTO) PO SCH (17:13)
[2020-11-25] MEDS: ACETAMINOPHEN TAB 650MG DOSE (2X325MG) PO PRN ×2 (17:16→22:39)
[2020-11-25 22:00] VITALS: BP 154/74
[2020-11-26 06:00] VITALS: BP 148/62
[2020-11-26] MEDS: ACETAMINOPHEN TAB 650MG DOSE (2X325MG) PO PRN (06:40)
[2020-11-26] MEDS: LEVOTHYROXINE 75MCG TABLET (0.075MG) PO SCH (06:40)
[2020-11-26] MEDS: MONTELUKAST 10 MG TAB PO SCH (09:39)
[2020-11-26] MEDS: ASPIRIN 81MG ENTERIC TABLET PO SCH (09:39)
[2020-11-26] MEDS: CitaloPRAM (CeleXA) 20 MG TAB PO SCH (09:39)
[2020-11-26 09:41] VITALS: BP 135/68
[2020-11-26] MEDS: LOSARTAN 50MG TABLET PO SCH (09:41)
[2020-11-26] MEDS: HumaLOG INSULIN (NovoLOG) PER UNIT SC SCH ×2 (09:42→12:18)
--- NOTE | 2020-11-26 12:35 | DS.PDOC ---
Discharge Summary General Date of Admission Nov 23, 2020 at 11:39 Date of Discharge 11/27/20 Discharge Summary DISCHARGE DIAGNOSES: Mechanical fall Left calcaneal fracture Acute oblique fracture of the left distal clavicle Fracture of the distal radius and ulna, avulsion fraction of the ulnar styloid of the right wrist Left periorbital soft tissue swelling COMPLICATIONS/CHIEF COMPLAINT: Abd Contusion,Chest Wall Contusion, Fall. HOSPITAL COURSE: Ms. Goyal, is a 85-year-old female with a past medical history offollicular lymphoma (on a trial drug), hypertension, diabetes (controlled with diet), hypothyroidism, and TAVR (2019), who presented to [facility] on 11/23 after sustaining a mechanical fall. She sustained the following injuries: Left calcaneal fracture: Patient was placed in a splint she is to be nonweightbearing to the left foot. A walking boot with slight heel lift was ordered by orthopedics team. Fracture of the distal radius and ulna, avulsion fraction of the ulnar styloid of the right wrist: underwent closed reduction and splinting Acute oblique fracture of the left distal clavicle: no operative intervention required at this time, limited weightbearing to left shoulder less than 5 to 10 pounds Patient is to follow-up with orthopedics team next week Tuesday or Tuesday for repeat imaging assessment of fractures: "She will remain nonweightbearing to the right upper extremity and left lower extremity with limited weightbearing to the left upper extremity." As per Ortho recommendation There was also left periorbital soft tissue swelling but otherwise no acute fractures appreciated on maxillofacial CT It should be noted patient has a transaminitis but her clinical examination of the abdomen was benign. She was asked to follow-up with her primary care physician and/or a plumbers and top helpers for further evaluation. Her AST was slightly elevated at the time of discharge 249 and an alk phosphatase of 126. She is on an experimental drug, it is unclear if this is may be contributing to these findings. Patient was asked to obtain all imaging results for appropriate follow-up of chronic findings that may have been appreciated. Patient requests physical therapy during hospitalization. Patient and family were educated about appropriate weightbearing status. Family wanted to take patient back home with home services. DVT prophylaxis was discussed with orthopedics team. Patient will be going home on Xarelto 10 mg daily. Patient and her family were explained the risks of being on blood thinner including fatal bleeding leading to . They were also explained to talk to physician that was prescribing the experimental drug for her follicular lymphoma to ensure that there is no interactions. DISCHARGE MEDICATIONS: Please see below. ALLERGIES: Please see below. PHYSICAL EXAMINATION ON DISCHARGE: VITAL SIGNS: Please see below. General: Lying in bed, no acute distress Head/Neck/Throat: Trachea midline, mucous membranes moist. No overt lesions appreciated on scalp. Eyes: Sclera anicteric, no erythema or discharge appreciated bilaterally Thorax: Normal respiratory effort on room air, lungs clear to auscultation bilaterally, no wheezes/rales/rhonchi Cardiovascular: Normal rate, regular rhythm, normal S1, S2; no S3, S4, rubs/gallops/murmurs Abdomen: Bowel sounds present, soft/nontender/nondistended Genitourinary: No CVA tenderness, no Long in place Musculoskeletal: Right wrist is wrapped in a cast, as well as left lower extremity. Neurologic: AAOx3, speech fluent and goal-directed, no focal deficits, grossly intact LABORATORY DATA: Please see below. IMAGING: Please see imaging section PROGNOSIS: Good ACTIVITY: As per orthopedic recommendations. DIET: Diabetic diet is encouraged DISCHARGE PLAN: Home with home services DISPOSITION: . DISCHARGE INSTRUCTIONS: 1. Follow-up with primary care physician within 5 days to discuss recent course of hospitalization. 2. Follow-up with orthopedics team within 1 week DISCHARGE CONDITION: Stable TIME SPENT ON DISCHARGE: 25 minutes. Vital Signs/I&Os Vital Signs Date Time Temp Pulse Resp B/P (MAP) Pulse Ox O2 Delivery O2 Flow Rate FiO2 11/26/20 09:41 135/68 11/26/20 09:41 82 11/26/20 06:00 97.8 17 98 Room Air I&O- Last 24 Hours up to 6 AM 11/26/20 05:59 Intake Total 3290 ml Output Total 1850 ml Balance 1440 ml Laboratory Data Labs 24H Laboratory Tests 2 11/25/20 16:42: Bedside Glucose (Misc Panel) 190H 11/25/20 21:38: Bedside Glucose (Misc Panel) 216H 11/26/20 06:27: Bedside Glucose (Misc Panel) 135H 11/26/20 11:57: Bedside Glucose (Misc Panel) 217H FSBS Laboratory Tests Test 11/25/20 16:42 11/25/20 21:38 11/26/20 06:27 11/26/20 11:57 Range/Units Bedside Glucose (Misc Panel) 190 216 135 217 83-110 MG/DL Discharge Medications Scheduled Amlodipine Besylate (Amlodipine Besylate) 10 Mg Tablet, 10 MG PO DAILY, (Reported) Aspirin (Aspirin EC) 81 Mg Tablet.dr, 81 MG PO DAILY, (Reported) Citalopram Hydrobromide (Citalopram HBr) 20 Mg Tablet, 20 MG PO DAILY, (Reported) Levothyroxine Sodium (Euthyrox) 75 Mcg Tablet, 75 MCG PO DAILY, (Reported) Losartan Potassium (Losartan Potassium) 100 Mg Tablet, 100 MG PO DAILY, (Reported) Metformin HCl (Metformin HCl ER) 500 Mg Tab.er.24h, 1,000 MG PO BID, (Reported) Montelukast Sodium (Montelukast Sodium) 10 Mg Tablet, 10 MG PO DAILY, (Reported) Rivaroxaban (Xarelto) 10 Mg Tablet, 10 MG PO DAILY@18 Sulfamethoxazole/Trimethoprim (Sulfamethoxazole-Tmp Ss Tablet) 1 Each Tablet, 1 TAB PO DAILY, (Reported) Valacyclovir HCl (Valacyclovir) 500 Mg Tablet, 500 MG PO DAILY, (Reported) [[id number]] , 20 MG PO DAILY, (Reported) THIS IS PATIENT'S CHEMO TREATMENT THAT WAS BROUGHT WITH HER FROM [place]. Allergies Coded Allergies: No Known Allergies (Unverified , 11/23/20) SHEREEN LYNNE M.D. Nov 26, 2020 12:30
[2020-11-26] MEDS ORDERED: XARE10TA PO (12:38)
[2020-11-26] MEDS ORDERED: ACET-683 PO (13:33)
[2020-11-26] MEDS: [UNRECOGNIZED DRUG - OTHER] PO SCH (13:41)
--- NOTE | 2020-11-27 02:00 | IPNPDOC ---
Subjective Date Seen The patient was seen on 11/25/20. Subjective Chief Complaint/HPI Patient was seen and examined at bedside this morning. She is [place]-speaking and preferred her daughter for interpretation who has been staying at her bedside. Patient had no new complaints and reported her pain is well controlled. She denied chest pain, palpitations, abdominal pain, nausea, vomiting, problems with urination or bowel movements. Objective Physical Examination Other physical findings General: Lying in bed, no acute distress Head/Neck/Throat: Trachea midline, mucous membranes moist. No overt lesions appreciated on scalp. Eyes: Sclera anicteric, no erythema or discharge appreciated bilaterally Thorax: Normal respiratory effort on room air, lungs clear to auscultation jelani aterally, no wheezes/rales/rhonchi Cardiovascular: Normal rate, regular rhythm, normal S1, S2; no S3, S4, rubs/gallops/murmurs Abdomen: Bowel sounds present, soft/nontender/nondistended Genitourinary: No CVA tenderness, no Long in place Musculoskeletal: Right wrist is wrapped in a cast, as well as left lower extremity. Neurologic: AAOx3, speech fluent and goal-directed, no focal deficits, grossly intact Assessment /Plan Assessment -Evaluated by orthopedic team: -Left calcaneal fracture: Patient was placed in a splint she is to be nonweightbearing to the left foot. A walking boot with slight heel lift was ordered by orthopedics team. -Fracture of the distal radius and ulna, avulsion fraction of the ulnar styloid of the right wrist -underwent closed reduction and splinting -Acute oblique fracture of the left distal clavicle -no operative intervention required at this time, limited weightbearing to left shoulder less than 5 to 10 pounds -Patient is to follow-up with orthopedics team next week Tuesday or Tuesday for repeat imaging assessment of fractures: "She will remain nonweightbearing to the right upper extremity and left lower extremity with limited weightbearing to the left upper extremity." As per Ortho recommendation -There was left periorbital soft tissue swelling but otherwise no acute fractures appreciated on maxillofacial CT #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 This will be resumed following her surgeries. #Transaminitis -Slightly elevated AST and alk phos. ? Possibly secondary to experimental drug. Daughter was explained to have appropriate follow-up. #Hypertension -Continue ambulatory losartan, amlodipine, and metoprolol. #Hypothyroidism -Continue with Synthroid #Status post TAVR -Continue aspirin #Incidental finding on CT -Right frontal cystic scalp mask suspicious for sebaceous cyst on head CT. This can be followed up as an outpatient. #DVT prophylaxis -On Xarelto Disposition: Physical therapy working with patient. She will be made ALC status Please note the patient does not qualify for a wheelchair as she is not able to propel herself. Therefore a script was give for a transport chair. Patient and family report she will have a child care specialist at home for assistance. Plan/VTE VTE Prophylaxis Ordered?: Yes VS, I&O, 24H, Fishbone Vital Signs/I&O Vital Signs Date Time Temp Pulse Resp B/P (MAP) Pulse Ox O2 Delivery O2 Flow Rate FiO2 11/25/20 08:44 153/79 11/25/20 06:00 98.4 66 17 98 Room Air I&O- Last 24 Hours up to 6 AM 11/25/20 06:00 Intake Total 3540 ml Output Total 2375 ml Balance 1165 ml Laboratory Data 24H LABS Laboratory Tests 2 11/24/20 17:52: Bedside Glucose (Misc Panel) 158H 11/24/20 20:56: Bedside Glucose (Misc Panel) 161H 11/25/20 05:34: Nucleated Red Blood Cells % (auto) 0.0, Immature Platelet Fraction 7.5, Anion Gap 5L, Glomerular Filtration Rate > 60.0, Calcium Level 8.4L, Phosphorus Level 2.7, Magnesium Level 1.9, Total Bilirubin 0.4, Aspartate Amino Transf (AST/SGOT) 49H, Alanine Aminotransferase (ALT/SGPT) 42, Alkaline Phosphatase 126H, Total Protein 5.1L, Albumin 2.9L, Albumin/Globulin Ratio 1.3 11/25/20 11:55: Bedside Glucose (Misc Panel) 184H CBC/BMP Laboratory Tests 11/25/20 05:34 SHEREEN LYNNE M.D. Nov 25, 2020 14:02
== END 2020-11-26 16:30 | disposition home health service (06) | DRG 563 ==
LOC: M ED 06:47 → M ED INP 11:39 → ENRESERV 12:25 → M MSPAV 15:24
PROVIDERS: ADMIT Internal Medicine; ATTEND Internal Medicine
PROC: 0PSHXZZ Reposition Right Radius, External Approach (ICD-10-PCS; principal; 2020-11-23)
PROC: 2W3TX1Z Immobilization of Left Foot using Splint (ICD-10-PCS; 2020-11-23)
DX: S52.501A Unspecified fracture of the lower end of right radius, initial encounter for closed fracture (principal); C82.90 Follicular lymphoma, unspecified, unspecified site; S52.614A Nondisplaced fracture of right ulna styloid process, initial encounter for closed fracture; S42.032A Displaced fracture of lateral end of left clavicle, initial encounter for closed fracture; S92.042A Displaced other fracture of tuberosity of left calcaneus, initial encounter for closed fracture; I10 Essential (primary) hypertension; E11.9 Type 2 diabetes mellitus without complications; E03.9 Hypothyroidism, unspecified; Z90.79 Acquired absence of other genital organ(s); Z90.49 Acquired absence of other specified parts of digestive tract; Z95.4 Presence of other heart-valve replacement; Z79.82 Long term (current) use of aspirin; Z79.84 Long term (current) use of oral hypoglycemic drugs; Z79.899 Other long term (current) drug therapy; Z20.822 Contact with and (suspected) exposure to COVID-19; W10.9XXA Fall (on) (from) unspecified stairs and steps, initial encounter; Y92.009 Unspecified place in unspecified non-institutional (private) residence as the place of occurrence of the external cause; S00.03XA Contusion of scalp, initial encounter; R74.01 Elevation of levels of liver transaminase levels

== ENCOUNTER → 2020-12-01 | Outpatient (CLI) | payer MEDICARE ==
[~2020-12-01] MED LIST: ACET-683 PO; AMLO1TAB25 PO; ASPI81TA26 PO; CITA20TA6 PO; CLOP75TA2 PO; EUTH75TA PO; EZET10TA21 PO; LOSA100T50 PO; METF-838 PO; MONT10TA10 PO; SULF400T14 PO; VALA500T5 PO; XARE10TA PO; [UNRECOGNIZED DRUG - OTHER] PO
--- NOTE | 2020-12-01 09:36 | REP ---
INDICATION: FALL. COMPARISON: 11/23/2020 TECHNIQUE: Two views FINDINGS: Once again, there is a comminuted fracture of the os calcis which does not appear to be significantly changed although the examinations are technically different. IMPRESSION: No significant change. The exams are technically different. <Electronically signed by Phuc Girard > 12/01/20 0957
--- NOTE | 2020-12-01 09:37 | REP ---
INDICATION: FALL. COMPARISON: Three views shoulder exam 11/23/2020 TECHNIQUE: Two views left clavicle FINDINGS: There is a distal clavicular fracture which does not appear to be significantly changed when compared to the prior exam although they are technically different. The acromioclavicular joint is maintained. IMPRESSION: Distal clavicle fracture as described above. <Electronically signed by Phuc Girard > 12/01/20 [id number]
--- NOTE | 2020-12-01 09:38 | REP ---
INDICATION: FALL. COMPARISON: 11/23/2020 without a cast TECHNIQUE: Two views FINDINGS: The previously described fractures are obscured by the overlying casting material. There does appear to be some reduction in the appearance of the fracture. IMPRESSION: As above. Follow-up once cast is removed. <Electronically signed by Phuc Girard > 12/01/20 0996
== END ==
LOC: M SOG 08:45
PROVIDERS: ATTEND Orthopaedic Surgery Adult Reconstructive Orthopaedic Surgery
DX: S42.002A Fracture of unspecified part of left clavicle, initial encounter for closed fracture (principal); S92.001A Unspecified fracture of right calcaneus, initial encounter for closed fracture; S52.501A Unspecified fracture of the lower end of right radius, initial encounter for closed fracture; W19.XXXA Unspecified fall, initial encounter

== ENCOUNTER → 2020-12-11 | Outpatient (CLI) | payer MEDICARE ==
--- NOTE | 2020-12-11 15:06 | REP ---
INDICATION: WRIST FX. COMPARISON: None. TECHNIQUE: AP and lateral views right wrist FINDINGS: Evaluation limited by overlying cast material. Stable comminuted fracture of the distal radial metaphysis again noted with suspected callus formation suggested healing. IMPRESSION: Healing distal radial metaphyseal fracture stable in appearance. <Electronically signed by Hector Easley > 12/11/20 [id number]
== END ==
LOC: M SOG 14:41
PROVIDERS: ATTEND Orthopaedic Surgery Adult Reconstructive Orthopaedic Surgery
DX: S52.501D Unspecified fracture of the lower end of right radius, subsequent encounter for closed fracture with routine healing (principal); X58.XXXD Exposure to other specified factors, subsequent encounter

== ENCOUNTER → 2020-12-11 | Outpatient (CLI) | payer MEDICARE ==
--- NOTE | 2020-12-11 15:07 | REP ---
INDICATION: RT ANKLE PAIN. COMPARISON: None. TECHNIQUE: AP, lateral, oblique views of the right ankle FINDINGS: Osteopenia and degenerative changes are noted. No obvious acute fracture or dislocation. Ankle mortise intact. IMPRESSION: Osteopenia and degenerative changes. No acute fracture or dislocation. <Electronically signed by Hector Easley > 12/11/20 [id number]
== END ==
LOC: M SOG 14:49
PROVIDERS: ATTEND Orthopaedic Surgery Adult Reconstructive Orthopaedic Surgery
DX: M85.851 Other specified disorders of bone density and structure, right thigh (principal)

== ENCOUNTER → 2020-12-19 | Outpatient (REF) | payer MEDICARE ==
[2020-12-19 12:58] LABS: HEMATOCRIT 38.9 % (36.0-47.0); HEMOGLOBIN 11.7 g/dl (12.0-15.5); MEAN CORPUSCULAR HEMOGLOBIN 24.9 pg (27.0-33.0); MEAN CORPUSCULAR HGB CONC 30.1 g/dl (32.0-36.5); MEAN CORPUSCULAR VOLUME 82.9 fl (80.0-96.0); PLATELET COUNT, AUTOMATED 160 10^3/uL (150-450); RED BLOOD COUNT 4.69 10^6/uL (4.00-5.40); WHITE BLOOD COUNT 10.2 10^3/uL (4.0-10.0)
[2020-12-19 13:26] LABS: ALBUMIN 3.8 GM/DL (3.2-5.2); ALT/SGPT 49 U/L (12-78); BILIRUBIN,TOTAL 0.3 MG/DL (0.2-1.0); BLOOD UREA NITROGEN 16 MG/DL (7-18); CARBON DIOXIDE LEVEL 28 MEQ/L (21-32); CHLORIDE LEVEL 109 MEQ/L (98-107); CREATININE FOR GFR 0.69 MG/DL (0.55-1.30); FERRITIN 37 NG/ML (8-252); GLOMERULAR FILTRATION RATE > 60.0 (>32); GLUCOSE, FASTING 139 MG/DL (70-100); IRON (FE) 39 UG/DL (50-170); PERCENT SATURATION 8.9 % (13.2-45.0); POTASSIUM SERUM 4.1 MEQ/L (3.5-5.1); SODIUM LEVEL 142 MEQ/L (136-145); TOTAL IRON BINDING CAPACITY 440 UG/DL (250-450); TOTAL PROTEIN 6.5 GM/DL (6.4-8.2)
[2020-12-19 13:28] LABS: EOSINOPHILS 2 % (0-3); LYMPHOCYTES 66 % (16-44); NEUTROPHILS 32 % (28-66)
[2020-12-19 13:29] LABS: ANISOCYTOSIS 1+; PLATELET ESTIMATE NORMAL (NORMAL)
== END ==
LOC: M SFHCADAM 10:29
PROVIDERS: ATTEND Physician Assistant
DX: K74.69 Other cirrhosis of liver (principal); D64.9 Anemia, unspecified; D69.6 Thrombocytopenia, unspecified

== ENCOUNTER → 2021-01-07 | Outpatient (CLI) | payer MEDICARE ==
--- NOTE | 2021-01-07 16:47 | REP ---
INDICATION: FX. COMPARISON: 12/01/2020 TECHNIQUE: Two views FINDINGS: The margins of the os calcis fracture are somewhat indistinct consistent with callus formation from healing. No new fractures have developed. There are no other significant changes. IMPRESSION: Healing os calcis fracture. <Electronically signed by Phuc Girard > 01/07/21 [id number]
--- NOTE | 2021-01-07 16:54 | REP ---
INDICATION: FX. COMPARISON: 12/11/[address] TECHNIQUE: Four views FINDINGS: Previously described distal radial and distal ulnar fractures are healing. Callus formation is evident. There are no new fractures. There does not appear to be significant change in the appearance of the alignment of the fractures. IMPRESSION: Healing fractures <Electronically signed by Phuc Girard > 01/07/21 [id number]
--- NOTE | 2021-01-07 17:03 | REP ---
INDICATION: FX. COMPARISON: 12/01/2020 TECHNIQUE: Two views FINDINGS: Previously described distal clavicular fracture is seen with indistinct margins consistent with callus formation and healing. The AC joint and GH joint are unchanged. IMPRESSION: Healing distal clavicle fracture. <Electronically signed by Phuc Girard > 01/07/21 [id number]
== END ==
LOC: M SOG 09:58
PROVIDERS: ATTEND Orthopaedic Surgery Adult Reconstructive Orthopaedic Surgery
DX: S42.002D Fracture of unspecified part of left clavicle, subsequent encounter for fracture with routine healing (principal); S52.501D Unspecified fracture of the lower end of right radius, subsequent encounter for closed fracture with routine healing; S92.002D Unspecified fracture of left calcaneus, subsequent encounter for fracture with routine healing

== ENCOUNTER → 2021-02-03 | Outpatient (CLI) | payer MEDICARE ==
[~2021-02-03] MED LIST changes: +CEFD300C41 PO; +D31000TA2 PO; +DOXY100T PO; +LOSA100T45 PO; -LOSA100T50 PO; -MONT10TA10 PO; +MONT10TA97 PO; +MUCI600T31 PO; +VITA500T15 PO; +ZINC1TAB2 PO
== END ==
LOC: M PLAIMG 09:10
PROVIDERS: ATTEND Orthopaedic Surgery Adult Reconstructive Orthopaedic Surgery
DX: S90.511D Abrasion, right ankle, subsequent encounter (principal); S92.354A Nondisplaced fracture of fifth metatarsal bone, right foot, initial encounter for closed fracture; S89.301A Unspecified physeal fracture of lower end of right fibula, initial encounter for closed fracture; M85.671 Other cyst of bone, right ankle and foot; Y92.9 Unspecified place or not applicable; Y93.9 Activity, unspecified; Y99.9 Unspecified external cause status

== ENCOUNTER → 2021-03-20 | Outpatient (CLI) | payer MEDICARE ==
[~2021-03-20] MED LIST changes: -CEFD300C41 PO; -D31000TA2 PO; -DOXY100T PO; -MUCI600T31 PO; -VITA500T15 PO; -ZINC1TAB2 PO
== END ==
LOC: M LABSMTC 11:09
PROVIDERS: ATTEND Pediatrics
DX: Z11.52 Encounter for screening for COVID-19 (principal); Z20.822 Contact with and (suspected) exposure to COVID-19

== ENCOUNTER → 2021-03-27 | Outpatient (REF) | payer MEDICARE | LOC: M SFHCADAM 16:32 | PROVIDERS: ATTEND Physician Assistant | DX: R19.7 Diarrhea, unspecified (principal) ==

== ENCOUNTER → 2021-04-01 | Outpatient (CLI) | payer MEDICARE ==
[~2021-04-01] MED LIST changes: +D31000TA2 PO; +MUCI600T31 PO; +VITA500T15 PO; +ZINC1TAB2 PO
== END ==
LOC: M SOG 16:04
PROVIDERS: ATTEND Orthopaedic Surgery Adult Reconstructive Orthopaedic Surgery
DX: M79.674 Pain in right toe(s) (principal); M85.851 Other specified disorders of bone density and structure, right thigh

== ENCOUNTER 2021-04-02 18:49 | Inpatient (IN) | payer MEDICARE ==
[~2021-04-02] VITALS: Ht 160 cm; Wt 64.5 kg
[~2021-04-02 18:49] MED LIST changes: -D31000TA2 PO; -MUCI600T31 PO; -VITA500T15 PO; -ZINC1TAB2 PO
[2021-04-02 20:08] LABS: BASO % 0.2 % (0.0-1.0); HEMATOCRIT 32.5 % (36.0-47.0); HEMOGLOBIN 10.5 g/dl (12.0-15.5); MEAN CORPUSCULAR HEMOGLOBIN 24.6 pg (27.0-33.0); MEAN CORPUSCULAR HGB CONC 32.3 g/dl (32.0-36.5); MEAN CORPUSCULAR VOLUME 76.3 fl (80.0-96.0); MONO # 1.5 10^3/uL (0.0-0.8); MONO % 7.4 % (2.0-8.0); NEUTROPHILS # 11.8 10^3/uL (1.5-8.5); NEUTROPHILS % 57.4 % (36.0-66.0); PLATELET COUNT, AUTOMATED 126 10^3/uL (150-450); RED BLOOD COUNT 4.26 10^6/uL (4.00-5.40); WHITE BLOOD COUNT 20.5 10^3/uL (4.0-10.0)
[2021-04-02 20:43] LABS: ALBUMIN 3.2 GM/DL (3.2-5.2); ALT/SGPT 45 U/L (12-78); BILIRUBIN,DIRECT 0.3 MG/DL (0.0-0.2); BILIRUBIN,TOTAL 0.7 MG/DL (0.2-1.0); BLOOD UREA NITROGEN 11 MG/DL (7-18); CALCIUM LEVEL 8.9 MG/DL (8.8-10.2); CARBON DIOXIDE LEVEL 24 MEQ/L (21-32); CHLORIDE LEVEL 102 MEQ/L (98-107); CREATININE FOR GFR 0.72 MG/DL (0.55-1.30); ETHYL ALCOHOL (ETHANOL) < 0.003 % (0.000-0.010); GLOMERULAR FILTRATION RATE > 60.0 (>32); GLUCOSE, FASTING 192 MG/DL (70-100); SODIUM LEVEL 135 MEQ/L (136-145); TOTAL PROTEIN 5.7 GM/DL (6.4-8.2)
[2021-04-02] MEDS ORDERED: D31000TA2 PO (21:08)
[2021-04-02] MEDS ORDERED: ZINC1TAB2 PO (21:08)
[2021-04-02] MEDS ORDERED: MUCI600T31 PO (21:08)
[2021-04-02] MEDS ORDERED: VITA500T15 PO (21:08)
[2021-04-02] MEDS ORDERED: HOME MED LIST COMPLETE! XX SCH (21:10)
[2021-04-02 21:12] LABS: CK-MB VALUE MASS < 1.0 NG/ML (<3.6); CPK CREATINE PHOSPHOKINASE 40 U/L (26-192)
[2021-04-02] MEDS ORDERED: POTASSIUM CHLORIDE 10MEQ SR TABLET PO ONE (22:00)
[2021-04-03 01:20] LABS: RSV AMPLIFICATION NEGATIVE (NEGATIVE)
[2021-04-03] MEDS: cefTRIAXone SOD 1 GM in D5W MINI-BAG PLUS 50 ML IV SCH (03:21)
[2021-04-03 03:25] VITALS: BP 154/87
[2021-04-03] MEDS ORDERED: NS 1,000 ML IV ONE (03:35)
[2021-04-03] MEDS ORDERED: ACETAMINOPHEN TAB 650MG DOSE (2X325MG) PO PRN (03:55)
[2021-04-03] MEDS ORDERED: GLUCOSE 4GM CHEW TABLET PO PRN (03:55)
[2021-04-03] MEDS ORDERED: DEXTROSE 50% 50 ML SYRINGE IV PRN (03:55)
[2021-04-03] MEDS ORDERED: GLUCAGON INJ 1MG VIAL SC PRN (03:55)
[2021-04-03] MEDS ORDERED: NS 1,000 ML IV SCH ×2 (03:55→16:30)
[2021-04-03] MEDS ORDERED: ISOVUE-370 76% 100ML VIAL As Ordered ONE (07:57)
[2021-04-03] MEDS: HumaLOG INSULIN (NovoLOG) PER UNIT SC SCH ×3 (08:39→17:15)
[2021-04-03] MEDS: HEPARIN SOD (PORCINE) 5000UNITS/ML 1ML VIAL/SYRINGE SC SCH ×2 (08:40→22:51)
[2021-04-03 08:51] LABS: BLOOD UREA NITROGEN 9 MG/DL (7-18); CALCIUM LEVEL 8.8 MG/DL (8.8-10.2); CARBON DIOXIDE LEVEL 27 MEQ/L (21-32); CHLORIDE LEVEL 105 MEQ/L (98-107); CREATININE FOR GFR 0.58 MG/DL (0.55-1.30); GLOMERULAR FILTRATION RATE > 60.0 (>32); GLUCOSE, FASTING 145 MG/DL (70-100); SODIUM LEVEL 139 MEQ/L (136-145)
[2021-04-03 08:51] LABS: BASO % 0.2 % (0.0-1.0); EOS % 0.1 % (0.0-3.0); HEMATOCRIT 31.9 % (36.0-47.0); HEMOGLOBIN 10.1 g/dl (12.0-15.5); LYMPH # 5.3 10^3/uL (1.5-5.0); LYMPH % 32.8 % (24.0-44.0); MEAN CORPUSCULAR HEMOGLOBIN 24.6 pg (27.0-33.0); MEAN CORPUSCULAR HGB CONC 31.7 g/dl (32.0-36.5); MEAN CORPUSCULAR VOLUME 77.8 fl (80.0-96.0); MONO # 0.8 10^3/uL (0.0-0.8); MONO % 5.1 % (2.0-8.0); NEUTROPHILS # 9.8 10^3/uL (1.5-8.5); NEUTROPHILS % 60.8 % (36.0-66.0); PLATELET COUNT, AUTOMATED 114 10^3/uL (150-450); WHITE BLOOD COUNT 16.1 10^3/uL (4.0-10.0)
[2021-04-03 09:16] LABS: ERYTHROCYTE SEDIMENTATION RATE 31 mm/hr (0-30)
[2021-04-03] MEDS ORDERED: POTASSIUM CHLORIDE 10MEQ SR TABLET PO ONE (10:00)
[2021-04-03 10:53] LABS: MAGNESIUM LEVEL 1.5 MG/DL (1.8-2.4)
[2021-04-03] MEDS: MAG SULF 1GM/100ML (MAG RUN) 1 GM in IV 1 EA IV SCH ×2 (17:16→18:44)
[2021-04-03 19:46] VITALS: BP 164/67
[2021-04-03] MEDS ORDERED: DOXYCYCLINE HYCLATE 100 MG in D5W MINI-BAG PLUS 100 ML IV SCH (20:00)
[2021-04-03 20:53] LABS: BLOOD UREA NITROGEN 9 MG/DL (7-18); CALCIUM LEVEL 9.3 MG/DL (8.8-10.2); CARBON DIOXIDE LEVEL 27 MEQ/L (21-32); CHLORIDE LEVEL 107 MEQ/L (98-107); CREATININE FOR GFR 0.61 MG/DL (0.55-1.30); GLOMERULAR FILTRATION RATE > 60.0 (>32); GLUCOSE, FASTING 178 MG/DL (70-100); POTASSIUM SERUM 3.2 MEQ/L (3.5-5.1); SODIUM LEVEL 139 MEQ/L (136-145)
[2021-04-03] MEDS ORDERED: HumaLOG INSULIN (NovoLOG) PER UNIT SC SCH (21:00)
[2021-04-03] MEDS: DOXYCYCLINE HYCLATE 100MG TABLET PO SCH (22:51)
[2021-04-04] MEDS: cefTRIAXone SOD 1 GM in D5W MINI-BAG PLUS 50 ML IV SCH (02:45)
[2021-04-04 05:36] VITALS: BP 159/69
[2021-04-04] MEDS ORDERED: LEVOTHYROXINE 75MCG TABLET (0.075MG) PO SCH (06:00)
[2021-04-04 06:06] LABS: HEMOGLOBIN 9.7 g/dl (12.0-15.5); MEAN CORPUSCULAR HEMOGLOBIN 24.5 pg (27.0-33.0); MEAN CORPUSCULAR HGB CONC 31.3 g/dl (32.0-36.5); MEAN CORPUSCULAR VOLUME 78.3 fl (80.0-96.0); PLATELET COUNT, AUTOMATED 123 10^3/uL (150-450); RED BLOOD COUNT 3.96 10^6/uL (4.00-5.40); WHITE BLOOD COUNT 8.8 10^3/uL (4.0-10.0)
[2021-04-04 06:25] LABS: BLOOD UREA NITROGEN 9 MG/DL (7-18); CALCIUM LEVEL 8.8 MG/DL (8.8-10.2); CARBON DIOXIDE LEVEL 23 MEQ/L (21-32); CHLORIDE LEVEL 111 MEQ/L (98-107); CREATININE FOR GFR 0.47 MG/DL (0.55-1.30); GLOMERULAR FILTRATION RATE > 60.0 (>32); GLUCOSE, FASTING 116 MG/DL (70-100); MAGNESIUM LEVEL 2.2 MG/DL (1.8-2.4); SODIUM LEVEL 142 MEQ/L (136-145)
[2021-04-04] MEDS ORDERED: POTASSIUM CHLORIDE 10MEQ SR TABLET PO ONE (07:25)
[2021-04-04] MEDS: HEPARIN SOD (PORCINE) 5000UNITS/ML 1ML VIAL/SYRINGE SC SCH (08:23)
[2021-04-04] MEDS: DOXYCYCLINE HYCLATE 100MG TABLET PO SCH (08:23)
[2021-04-04] MEDS: HumaLOG INSULIN (NovoLOG) PER UNIT SC SCH ×2 (08:24→13:08)
[2021-04-04] MEDS ORDERED: CitaloPRAM (CeleXA) 20 MG TAB PO SCH (09:00)
[2021-04-04] MEDS ORDERED: CEFD300C41 PO (10:26)
[2021-04-04] MEDS ORDERED: DOXY100T PO (10:26)
== END 2021-04-04 13:44 | disposition home health service (06) | DRG 177 ==
LOC: M ED 18:49 → M ED INP 04-03 02:09 → M 4MAIN 04-03 03:05
PROVIDERS: ADMIT Internal Medicine; ATTEND Internal Medicine
DX: U07.1 COVID-19 (principal); J12.82 Pneumonia due to coronavirus disease 2019; N39.0 Urinary tract infection, site not specified; M79.674 Pain in right toe(s); M85.851 Other specified disorders of bone density and structure, right thigh; Z79.82 Long term (current) use of aspirin; Z79.84 Long term (current) use of oral hypoglycemic drugs; Z79.899 Other long term (current) drug therapy; E11.9 Type 2 diabetes mellitus without complications; Z90.49 Acquired absence of other specified parts of digestive tract; R53.1 Weakness; I10 Essential (primary) hypertension; E03.9 Hypothyroidism, unspecified; R22.2 Localized swelling, mass and lump, trunk; E87.6 Hypokalemia